=== PATIENT | female | born 1950 | race Hispanic/Latino ===

== ENCOUNTER 2020-06-14 18:11 | Inpatient (IN) | payer BC, MEDICARE, OTHER ==
[~2020-06-14] VITALS: Ht 152.4 cm; Wt 79.6 kg
[2020-06-14] MEDS ORDERED: LEVOFLOXACIN 500 MG/D5W 100 ML 100 ML IV SCH (19:00)
[2020-06-14] MEDS ORDERED: ONDANSETRON HCL 4 MG/2 ML VIAL ONE (21:28)
[2020-06-14] MEDS ORDERED: HYDROMORPHONE HCL 0.5 MG/0.5 ML ML ONE (21:29)
[2020-06-14] MEDS: PHARMACY COMMUNICATION MISC SCH (21:45)
[2020-06-15] VITALS (7 sets, daily range): BP systolic 129–152; BP diastolic 61–80
[2020-06-15] MEDS ORDERED: ZOLPIDEM TARTRATE 5 MG TAB ONE (00:55)
[2020-06-15 01:17] LABS: APPEARANCE,URINE Turbid (CLEAR); BILIRUBIN,URINE Small (NEGATIVE); COLOR,URINE Red (YELLOW); GLUCOSE, URINE (UA) Negative (NEGATIVE); KETONES,URINE Negative (NEGATIVE); LEUKOCYTE ESTERASE ,URINE Large (NEGATIVE); NITRATE,URINE Negative (NEGATIVE); OCCULT BLOOD,URINE Large (NEGATIVE); PH,URINE 5.5 (5.0-8.0); PROTEIN,URINE POS 2+ mg/dL (NEGATIVE)
[2020-06-15 01:29] LABS: BACTERIA,URINE Moderate /HPF (None Seen); RBC,URINE >100 /HPF (0-1)
[2020-06-15] MEDS ORDERED: ONDANSETRON HCL 4 MG/2 ML VIAL IVP PRN (05:00)
[2020-06-15] MEDS ORDERED: HYDROMORPHONE 1 MG/1 ML AMP IVP PRN (05:00)
[2020-06-15] MEDS: PHARMACY COMMUNICATION MISC SCH (05:45)
--- NOTE | 2020-06-15 13:00 | NUR ---
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 WAS HAVING INTERMITTENT CATHETERIZATION AT [facility] AND WAS SENT HER FOR A UROLOGY CONSULT. THINKS SHE WILLB E GOING BACK TO [facility] ON DISCHARGE, BUT NOT SURE. CM TO FOLLOW Addendum: 06/16/20 at 1819 by IVAN MENA RN CM Amended: Links added.
--- NOTE | 2020-06-15 13:43 | NUR ---
IN CELERY TIER OF [place] DUMONT AND USING CLEAN METHODS MCRAE CATH WAS REMOVED ORDERED BY PHYSICIAN. NO COMPLAINTS OR PAIN AT THE MOMENT.
[2020-06-15] MEDS ORDERED: MAG-37 PO (17:02)
[2020-06-15] MEDS ORDERED: ACET325C6 PO (17:02)
[2020-06-15] MEDS ORDERED: LUBI24CA2 PO (17:02)
[2020-06-15] MEDS ORDERED: LATA7.5D OP (17:02)
[2020-06-15] MEDS ORDERED: CLOP75TA32 PO (17:02)
[2020-06-15] MEDS ORDERED: BUME1TAB6 PO (17:02)
[2020-06-15] MEDS ORDERED: METO-391 PO (17:02)
[2020-06-15] MEDS ORDERED: POLY17PO29 PO (17:02)
[2020-06-15] MEDS ORDERED: PANT40GR PO (17:02)
[2020-06-15] MEDS ORDERED: DICL2100G TP (17:02)
[2020-06-15] MEDS ORDERED: SENN-183 PO (17:02)
[2020-06-15] MEDS ORDERED: NIFE-40 PO (17:02)
[2020-06-15] MEDS ORDERED: ICOS1CAP PO (17:02)
[2020-06-15] MEDS ORDERED: NORT10CA2 PO (17:02)
[2020-06-15] MEDS ORDERED: SPIR25TA6 PO (17:02)
[2020-06-15] MEDS ORDERED: CYCL5.5D3 OP (17:02)
[2020-06-15] MEDS ORDERED: GABA-529 PO (17:02)
[2020-06-15] MEDS ORDERED: BALS60OI4 TP (17:02)
[2020-06-15] MEDS ORDERED: BISA10SU11 RC (17:02)
[2020-06-15] MEDS ORDERED: FENT1PAT61 TD (17:02)
[2020-06-15] MEDS ORDERED: LIDO1ADH71 TP (17:02)
[2020-06-15] MEDS ORDERED: HYDR-4068 PO (17:02)
[2020-06-15] MEDS ORDERED: ATOR40TA69 PO (17:02)
[2020-06-15] MEDS ORDERED: HYDR28OI10 TP (17:02)
[2020-06-15] MEDS ORDERED: METH500T6 PO (17:02)
[2020-06-15] MEDS ORDERED: HYDR-4060 PO (17:02)
[2020-06-15] MEDS ORDERED: LACT10SO9 PO (17:02)
[2020-06-15] MEDS ORDERED: KCL10IV IV (17:02)
[2020-06-15] MEDS ORDERED: ONDA22I IM (17:02)
[2020-06-15] MEDS ORDERED: ONDANSETRON HCL 4 MG/2 ML VIAL IV PRN (19:00)
[2020-06-15] MEDS ORDERED: SIMETH PO PRN (19:00)
[2020-06-15] MEDS ORDERED: ALUMINUM HYD PO PRN (19:00)
[2020-06-15] MEDS ORDERED: MAG HYDROX PO PRN (19:00)
[2020-06-15] MEDS ORDERED: [UNRECOGNIZED DRUG - OTHER] PO PRN (19:00)
[2020-06-15] MEDS ORDERED: ACETAMINOPHEN 325 MG PO PRN (19:00)
[2020-06-15] MEDS ORDERED: LACTULOSE 20 GM/30 ML UDCUP PO PRN (19:00)
[2020-06-15] MEDS ORDERED: BALSAM PERU/CASTOR OIL 60 GM TUBE TP PRN (19:00)
[2020-06-15] MEDS ORDERED: BISACODYL 10 MG SUPP.RECT RC PRN (19:00)
[2020-06-15] MEDS ORDERED: POLYETHYLENE GLYCOL 3350 17 GM POWD.PACK PO PRN (19:00)
[2020-06-15] MEDS ORDERED: MAG HYDROX/AL HYDROX/SIMETH ES 30 ML SUSP UDCUP PO PRN (19:30)
[2020-06-15] MEDS ORDERED: PHARMACY COMMUNICATION MISC SCH (19:30)
[2020-06-15] MEDS ORDERED: SODIUM CHLORIDE 0.9% 250 ML IV ONE (20:00)
[2020-06-15] MEDS: [UNRECOGNIZED DRUG - OTHER] OP SCH (20:53)
[2020-06-15] MEDS: CYCLOSPORINE OP SCH (20:53)
[2020-06-15] MEDS: CHONDROIT SULF A OP SCH (20:53)
[2020-06-15] MEDS: LATANOPROST 2.5 ML DROPS OP SCH (20:54)
[2020-06-15] MEDS: LUBIPROSTONE 24 MCG CAP PO SCH (20:55)
[2020-06-15] MEDS ORDERED: NON-FORMULARY MEDICATION 1 EACH (Latanoprost/Pf (Latanoprost 0.005% Eye Drop) 7.5 ML) OP SCH (21:00)
[2020-06-15] MEDS ORDERED: CYCLOBENZAPRINE HCL 10 MG TABLET PO SCH (21:00)
[2020-06-15] MEDS: DICLOFENAC SODIUM TP SCH (21:00)
[2020-06-15] MEDS ORDERED: [UNRECOGNIZED DRUG - OTHER] OP SCH (21:00)
[2020-06-15] MEDS ORDERED: CHONDROIT SULF A OP SCH (21:00)
[2020-06-15] MEDS: NORTRIPTYLINE 10 MG PO SCH (21:00)
[2020-06-15] MEDS ORDERED: [UNRECOGNIZED DRUG - OTHER] TP SCH (21:00)
[2020-06-15] MEDS ORDERED: CYCLOSPORINE OP SCH (21:00)
[2020-06-15] MEDS: APPL TP SCH (21:00)
[2020-06-15] MEDS ORDERED: DICLOFENAC SODIUM TP SCH (21:00)
[2020-06-15] MEDS ORDERED: APPL TP SCH (21:00)
[2020-06-15] MEDS: LEVOFLOXACIN 500 MG/D5W 100 ML 100 ML IV SCH (21:00)
[2020-06-15] MEDS ORDERED: NORTRIPTYLINE HCL 10 MG PO SCH (21:00)
--- NOTE | 2020-06-15 21:00 | NUR ---
PT HAS URINARY RETENTION PT C/O SUPRAPUBIC DISCOMFORT. BLADDER DISTENTION FELT AND TENDER TO TOUCH. INSERTED 16F MCRAE PER DR SANCHEZ. RETRIVE 800MLS ON FIRST INSERTION. PT STATED SHE FELT BETTER AFTER
[2020-06-15] MEDS: GABAPENTIN 100 MG CAPSULE PO SCH (21:02)
[2020-06-15] MEDS: ATORVASTATIN CALCIUM 40 MG TABLET PO SCH (21:03)
[2020-06-15] MEDS ORDERED: CYCLOBENZAPRINE HCL 10 MG TABLET ONE (21:23)
[2020-06-15] MEDS: ZOLPIDEM TARTRATE 5 MG TAB PO PRN (21:25)
[2020-06-16 03:52] VITALS: BP 139/75
[2020-06-16 07:00] VITALS: BP 148/66
[2020-06-16] MEDS ORDERED: NON-FORMULARY MEDICATION 1 EACH (Pantoprazole Sodium 40 MG) PO SCH (07:30)
--- NOTE | 2020-06-16 08:00 | NUR ---
AM SHIFT ASSESSMENT.
[2020-06-16] MEDS: CYCLOSPORINE OP SCH ×3 (09:00→21:00)
[2020-06-16] MEDS ORDERED: LIDOCAINE TP SCH (09:00)
[2020-06-16] MEDS: FISH OIL 1000 MG/CAP PO SCH (09:00)
[2020-06-16] MEDS: APPL TP SCH ×3 (09:00→21:00)
[2020-06-16] MEDS ORDERED: NON-FORMULARY MEDICATION 1 EACH (Icosapent Ethyl (Vascepa) 1 GM) PO SCH (09:00)
[2020-06-16] MEDS: [UNRECOGNIZED DRUG - OTHER] OP SCH ×3 (09:00→21:00)
[2020-06-16] MEDS: DICLOFENAC SODIUM TP SCH ×3 (09:00→21:00)
[2020-06-16] MEDS: CHONDROIT SULF A OP SCH ×3 (09:00→21:00)
[2020-06-16] MEDS: NIFEDIPINE ER 30 MG TAB PO SCH (09:11)
[2020-06-16] MEDS: SPIRONOLACTONE 25 MG TAB PO SCH (09:11)
[2020-06-16] MEDS: CYCLOBENZAPRINE HCL 10 MG TABLET PO SCH ×3 (09:11→21:42)
[2020-06-16] MEDS: PANTOPRAZOLE SODIUM 40 MG TABLET.DR PO SCH (09:11)
[2020-06-16] MEDS: BUMETANIDE 1 MG TAB PO SCH (09:11)
[2020-06-16] MEDS: CLOPIDOGREL BISULFATE 75 MG TAB PO SCH (09:12)
[2020-06-16] MEDS: LUBIPROSTONE 24 MCG CAP PO SCH ×2 (09:12→21:42)
[2020-06-16] MEDS: METOPROLOL SUCCINATE 50 MG TAB.SR.24H PO SCH (09:12)
[2020-06-16] MEDS: GABAPENTIN 100 MG CAPSULE PO SCH ×2 (09:12→21:43)
[2020-06-16] MEDS: LIDOCAINE 5% TOPICAL PATCH TP SCH (09:14)
--- NOTE | 2020-06-16 11:35 | NUR ---
SPOKE TO PATIENT AT BEDSIDE- CONFIRMED DCP. PT STATES DR. PAZ SAID NO [facility]H ON DISCHARGE. Addendum: 06/16/20 at 1821 by IVAN MENA RN CM Amended: Links added.
[2020-06-16 11:52] VITALS: BP 135/83
[2020-06-16] MEDS: PHARMACY COMMUNICATION MISC SCH ×2 (13:15→19:15)
--- NOTE | 2020-06-16 13:20 | NUR ---
TO RAD. DEPT. NOW FOR MRI OF SPINAL CANAL AND LUMBER. NO CONSENT OR LABS NEEDED
--- NOTE | 2020-06-16 14:20 | NUR ---
BACK FROM RAD. DEPT.NO C/O.
--- NOTE | 2020-06-16 15:18 | NUR ---
CALL TO DR. PAZ CLARIFICATION ON H&P SAID UROLOGY CONSULT, SAID NO IT IS A NEURO PROBLEM SINCE PATIENT HAS HAD RETENTION AND HAD RECENT SURGERY.
[2020-06-16 16:49] VITALS: BP 136/78
[2020-06-16] MEDS: ACETAMINOPHEN 325 MG TAB PO PRN (19:48)
[2020-06-16 19:51] VITALS: BP 129/60
[2020-06-16] MEDS: NORTRIPTYLINE 10 MG PO SCH (21:00)
[2020-06-16] MEDS: LEVOFLOXACIN 500 MG/D5W 100 ML 100 ML IV SCH (21:42)
[2020-06-16] MEDS: ATORVASTATIN CALCIUM 40 MG TABLET PO SCH (21:42)
[2020-06-16] MEDS: LATANOPROST 2.5 ML DROPS OP SCH (21:54)
[2020-06-16] MEDS: ZOLPIDEM TARTRATE 5 MG TAB PO PRN (21:59)
[2020-06-16 23:42] VITALS: BP 119/60
[2020-06-17] MEDS: PHARMACY COMMUNICATION MISC SCH ×4 (01:15→19:15)
[2020-06-17 03:50] VITALS: BP 128/70
[2020-06-17 06:04] LABS: BASOPHILS % (AUTO) 0.7 % (0.0-5.0); EOSINOPHILS % (AUTO) 1.6 % (0.0-8.0); HEMATOCRIT 35.3 % (36-48); LYMPHOCYTES % (AUTO) 21.6 % (21.0-51.0); MEAN CORPUSCULAR HEMOGLOBIN 29.7 pg (27.0-33.0); MEAN CORPUSCULAR HGB CONC 32.6 g/dL (32.0-36.0); MEAN CORPUSCULAR VOLUME 91.2 fL (79-99); MONOCYTES % (AUTO) 8.4 % (3.0-13.0); NEUTROPHILS % (AUTO) 67.4 % (40.0-77.0); PLATELET COUNT (AUTO) 356 K/uL (130-400); RED BLOOD CELL COUNT(AUTO) 3.87 MIL/uL (4.00-5.50); RED CELL DISTRIBUTION WIDTH 12.4 % (11.0-15.5); WHITE BLOOD COUNT (AUTO) 10.4 K/uL (4.8-10.8)
[2020-06-17 06:08] LABS: POTASSIUM 3.1 mmol/L (3.5-5.1)
[2020-06-17] MEDS ORDERED: POTA10CA44 PO (06:20)
[2020-06-17] MEDS ORDERED: POTASSIUM CHLORIDE 10% ELIXIR 20 MEQ/15 ML UDCUP PO PRN ×2 (07:30→08:45)
[2020-06-17] MEDS ORDERED: OXYCODONE HCL 10 MG TAB.SR.12H PO PRN (07:30)
[2020-06-17] MEDS ORDERED: POTASSIUM CHLORIDE 20MEQ/100ML 100 ML IV PRN ×2 (07:30→08:45)
[2020-06-17] MEDS ORDERED: LIDOCAINE HCL-MPF 1% 2ML VIAL IV PRN ×2 (07:30→08:45)
[2020-06-17] MEDS: FISH OIL 1000 MG/CAP PO SCH (08:30)
[2020-06-17] MEDS ORDERED: POTASSIUM CHLORIDE 20 MEQ ERTAB PO PRN (08:45)
[2020-06-17] MEDS ORDERED: POTASSIUM CHLORIDE 10 MEQ MISC SCH (09:00)
[2020-06-17] MEDS: APPL TP SCH ×3 (09:00→21:00)
[2020-06-17] MEDS: DICLOFENAC SODIUM TP SCH ×3 (09:00→21:00)
[2020-06-17] MEDS: CYCLOSPORINE OP SCH ×3 (09:00→20:46)
[2020-06-17] MEDS: CHONDROIT SULF A OP SCH ×3 (09:00→20:46)
[2020-06-17] MEDS: [UNRECOGNIZED DRUG - OTHER] OP SCH ×3 (09:00→20:46)
[2020-06-17 09:03] VITALS: BP 140/90
[2020-06-17] MEDS: METOPROLOL SUCCINATE 50 MG TAB.SR.24H PO SCH (09:52)
[2020-06-17] MEDS: SPIRONOLACTONE 25 MG TAB PO SCH (09:52)
[2020-06-17] MEDS: BUMETANIDE 1 MG TAB PO SCH (09:52)
[2020-06-17] MEDS: LUBIPROSTONE 24 MCG CAP PO SCH ×2 (09:52→20:25)
[2020-06-17] MEDS: GABAPENTIN 100 MG CAPSULE PO SCH ×2 (09:52→20:25)
[2020-06-17] MEDS: CYCLOBENZAPRINE HCL 10 MG TABLET PO SCH ×3 (09:52→20:25)
[2020-06-17] MEDS: PANTOPRAZOLE SODIUM 40 MG TABLET.DR PO SCH (09:53)
[2020-06-17] MEDS: POTASSIUM CHLORIDE 10 MEQ/TAB.SA PO SCH (09:53)
[2020-06-17] MEDS: NIFEDIPINE ER 30 MG TAB PO SCH (09:53)
[2020-06-17] MEDS: CLOPIDOGREL BISULFATE 75 MG TAB PO SCH (09:53)
[2020-06-17] MEDS: LIDOCAINE 5% TOPICAL PATCH TP SCH (09:54)
[2020-06-17 12:09] VITALS: BP 136/70
--- NOTE | 2020-06-17 14:30 | NUR ---
AFTER SOME BLADDER TRAINING DONE, MCRAE CATH REMOVED FOR ORDER OF DR. PAZ.
[2020-06-17 16:30] VITALS: BP 134/81
--- NOTE | 2020-06-17 16:30 | NUR ---
PAGED DR. BARBOUR AND HE RETURNED CALL, ORDERED CERVICAL MRI WITH CONTRAST AND HE WILL SEE PT. TOMORROW.
--- NOTE | 2020-06-17 16:31 | NUR ---
PT. WITH URGE TO VOID BUT SO FAR HAS NOT BEEN ABLE TO.
--- NOTE | 2020-06-17 17:35 | NUR ---
CONSULT WITH DR. LOUIS: RETURNED CALL, STATES TO LEAVE MCRAE CATH IN PLACE AND HE WILL SEE PT. AN OUT PT.
--- NOTE | 2020-06-17 18:50 | NUR ---
UNABLE TO VOID, PLACED 16FR MCRAE CATH USING STERILE TECHNIQUE, 1000 ML OF CLEAR PALE URINE DRAINED.
[2020-06-17 19:00] VITALS: BP 145/75
[2020-06-17] MEDS: ATORVASTATIN CALCIUM 40 MG TABLET PO SCH (20:25)
[2020-06-17] MEDS: LEVOFLOXACIN 500 MG/D5W 100 ML 100 ML IV SCH (20:26)
[2020-06-17] MEDS: POTASSIUM CHLORIDE 20 MEQ ERTAB PO PRN ×2 (20:26→22:13)
[2020-06-17] MEDS: NORTRIPTYLINE 10 MG PO SCH (20:26)
[2020-06-17] MEDS: LATANOPROST 2.5 ML DROPS OP SCH (20:46)
[2020-06-17] MEDS: ZOLPIDEM TARTRATE 5 MG TAB PO PRN (22:12)
[2020-06-17 23:45] VITALS: BP 104/59
[2020-06-18] MEDS: PHARMACY COMMUNICATION MISC SCH ×4 (01:03→19:15)
[2020-06-18 04:00] VITALS: BP 123/62
[2020-06-18 06:22] LABS: CREATININE 0.9 mg/dL (0.5-1.5); POTASSIUM 3.8 mmol/L (3.5-5.1)
[2020-06-18 07:20] VITALS: BP 132/66
[2020-06-18] MEDS: [UNRECOGNIZED DRUG - OTHER] OP SCH ×3 (09:00→21:00)
[2020-06-18] MEDS: CHONDROIT SULF A OP SCH ×3 (09:00→21:00)
[2020-06-18] MEDS: CYCLOSPORINE OP SCH ×3 (09:00→21:00)
[2020-06-18] MEDS: DICLOFENAC SODIUM TP SCH ×3 (09:00→21:00)
[2020-06-18] MEDS: APPL TP SCH ×3 (09:00→21:00)
[2020-06-18] MEDS: FISH OIL 1000 MG/CAP PO SCH (09:00)
[2020-06-18] MEDS: GABAPENTIN 100 MG CAPSULE PO SCH ×2 (09:29→21:54)
[2020-06-18] MEDS: PANTOPRAZOLE SODIUM 40 MG TABLET.DR PO SCH (09:29)
[2020-06-18] MEDS: POTASSIUM CHLORIDE 10 MEQ/TAB.SA PO SCH (09:30)
[2020-06-18] MEDS: CLOPIDOGREL BISULFATE 75 MG TAB PO SCH (09:30)
[2020-06-18] MEDS: SPIRONOLACTONE 25 MG TAB PO SCH (09:30)
[2020-06-18] MEDS: NIFEDIPINE ER 30 MG TAB PO SCH (09:30)
[2020-06-18] MEDS: LUBIPROSTONE 24 MCG CAP PO SCH ×2 (09:31→21:53)
[2020-06-18] MEDS: LIDOCAINE 5% TOPICAL PATCH TP SCH (09:31)
[2020-06-18] MEDS: METOPROLOL SUCCINATE 50 MG TAB.SR.24H PO SCH (09:31)
[2020-06-18] MEDS: BUMETANIDE 1 MG TAB PO SCH (09:31)
[2020-06-18] MEDS: CYCLOBENZAPRINE HCL 10 MG TABLET PO SCH ×3 (09:34→21:53)
[2020-06-18] MEDS ORDERED: TAMSULOSIN HCL 0.4 MG CAP.ER.24H ONE (09:38)
[2020-06-18 10:40] VITALS: BP 131/69
[2020-06-18] MEDS ORDERED: GADODIAMIDE 10 MMOL/20 ML VIAL IV ONE (10:45)
--- NOTE | 2020-06-18 11:05 | NUR ---
TO RAD. DEPT. NOW FOR SPINAL MRI WITH CONTRAST.
--- NOTE | 2020-06-18 14:23 | NUR ---
DC update: In to speak w pt regarding MD order for @ DC. Pt mentions that prior to admission she was at [facility] for therapy following a cervical surgery. Per pt she would like to be referred back to complete her rehabilitation. Informed pt that insurance would have to re authorize admission. Pt verbalizes understanding. Order obtained from MD for [facility] referral. PT able to sign PC/LUIS FERNANDO consent. Clinical/orders faxed to [facility]. Spoke shai Ziegler from [facility] she is familiar w pt from prior admission. States will inform Karlie. Addendum: 06/18/20 at 1601 by LEANN BYNUM CM Karlie states will relay information to Lulu.
--- NOTE | 2020-06-18 14:33 | NUR ---
DR. ALLEN CALLED ASKING FOR REPORT ON MRI WITH CONTRAST, HAS NOT BEEN READ. STATES HE WILL COME SEE PT. AND LOOK AT IMAGES.
--- NOTE | 2020-06-18 15:00 | NUR ---
DR. BARBOUR IN TO SEE PT.PT. REASSURED HER BLADDER PROBLEM NOT AT ALL RELATED TO CERVICALE DISKECTOMY SURGERY AND PT. SEEMS SATISFIED.
[2020-06-18 16:00] VITALS: BP 115/63
--- NOTE | 2020-06-18 16:01 | NUR ---
AURELIA Received call from [facility]. Confirms receipt of referral. States will complete eval and submit to insurance tomorrow. CM to continue to follow.
[2020-06-18] MEDS ORDERED: FUROSEMIDE 10 MG/ML 4ML VIAL IV SCH (19:30)
[2020-06-18 20:00] VITALS: BP 134/67
[2020-06-18] MEDS ORDERED: TAMSULOSIN HCL 0.4 MG CAP.ER.24H PO SCH (21:00)
[2020-06-18] MEDS: NORTRIPTYLINE 10 MG PO SCH (21:00)
[2020-06-18] MEDS: ATORVASTATIN CALCIUM 40 MG TABLET PO SCH (21:53)
[2020-06-18] MEDS: LEVOFLOXACIN 500 MG/D5W 100 ML 100 ML IV SCH (21:54)
[2020-06-18] MEDS: LATANOPROST 2.5 ML DROPS OP SCH (22:09)
[2020-06-19 00:04] VITALS: BP 98/55
[2020-06-19] MEDS: PHARMACY COMMUNICATION MISC SCH ×2 (00:39→06:31)
[2020-06-19 04:04] VITALS: BP 115/63
[2020-06-19] MEDS: ACETAMINOPHEN 325 MG TAB PO PRN (04:27)
[2020-06-19] MEDS: [UNRECOGNIZED DRUG - OTHER] OP SCH ×2 (07:20→07:22)
[2020-06-19] MEDS: CHONDROIT SULF A OP SCH ×2 (07:20→07:22)
[2020-06-19] MEDS: CYCLOSPORINE OP SCH ×2 (07:20→07:22)
[2020-06-19] MEDS: DICLOFENAC SODIUM TP SCH ×2 (07:21→07:22)
[2020-06-19] MEDS: APPL TP SCH ×2 (07:21→07:22)
[2020-06-19 07:52] VITALS: BP 121/60
[2020-06-19] MEDS: LUBIPROSTONE 24 MCG CAP PO SCH (08:48)
[2020-06-19] MEDS: LIDOCAINE 5% TOPICAL PATCH TP SCH (08:48)
[2020-06-19] MEDS: METOPROLOL SUCCINATE 50 MG TAB.SR.24H PO SCH (08:48)
[2020-06-19] MEDS: FISH OIL 1000 MG/CAP PO SCH (08:48)
[2020-06-19] MEDS: PANTOPRAZOLE SODIUM 40 MG TABLET.DR PO SCH (08:48)
[2020-06-19] MEDS: CYCLOBENZAPRINE HCL 10 MG TABLET PO SCH (08:48)
[2020-06-19] MEDS: GABAPENTIN 100 MG CAPSULE PO SCH (08:49)
[2020-06-19] MEDS: POTASSIUM CHLORIDE 10 MEQ/TAB.SA PO SCH (08:49)
[2020-06-19] MEDS: CLOPIDOGREL BISULFATE 75 MG TAB PO SCH (08:50)
[2020-06-19] MEDS: NIFEDIPINE ER 30 MG TAB PO SCH (08:50)
[2020-06-19] MEDS: SPIRONOLACTONE 25 MG TAB PO SCH (08:51)
--- NOTE | 2020-06-19 10:25 | NUR ---
CM NOTE/STRH PER VASYL AT [facility], PATIENT APPROVED UNDER INSURANCE WAIVER AND NO NEED FOR AUTHORIZATION. PER VASYL, WILL NEED UPDATED CLINICAL PACKET AND COVID FORM, FORMS LEFT FLAGGED IN CHART FOR VASYL. PRIMARY NURSE, KATRIN LITTLE, AWARE OF APPROVAL AND NEED TO CALL PRIMARY MD FOR DC ORDERS.
--- NOTE | 2020-06-19 10:34 | NUR ---
DR PAZ WAS CALL AND NOTIFY THAT PT IS BEEN ADMITTED TO [facility]. DR. PAZ VERBALIZED THAT PT CAN BE D/C, REGARDING THE MCRAE CATH DR. PAZ MENTION TO BLADDER TRAIN HER AND THEN REMOVED. IF BLADDER TRAINING DO NOT SUCCEED PT WILL GO WITH MCRAE.
--- NOTE | 2020-06-19 11:55 | NUR ---
CM NOTE/DC PLAN CHANGED TO HOME PER PATIENT, DECLINES GOING TO [facility]. PLAN HAS CHANGED TO DC HOME WITH [facility] AND F/U WITH DR. SKINNER AND DR. PAZ FOR TREATMENT AT HOME. PRIMARY NURSE, KATRIN LITTLE, AWARE TO CALL TO SET UP APPOINTMENT WITH DR. SKINNER AND DR. PAZ.
[2020-06-19 12:00] VITALS: BP 105/68
--- NOTE | 2020-06-19 14:06 | NUR ---
DR PAZ WAS CALL TO NOTIFY THAT PT HAS DECIDED TO GO HOME WITH THE [facility] INTEAD AND FOLLOW UP WITH UROLOGY OUTPATIENT. DR BURNS ORDER TO D/C PT HOME.
== END 2020-06-19 17:00 | disposition home or self-care (01) | DRG 699 ==
LOC: EDH 18:11 → EDHIP 18:12 → 4CH 06-15 01:31
PROVIDERS: ADMIT Internal Medicine; ATTEND Internal Medicine
DX: T83.098A Other mechanical complication of other urinary catheter, initial encounter (principal); Q24.5 Malformation of coronary vessels; G82.20 Paraplegia, unspecified; N39.0 Urinary tract infection, site not specified; R33.9 Retention of urine, unspecified; R31.0 Gross hematuria; M19.90 Unspecified osteoarthritis, unspecified site; M47.816 Spondylosis without myelopathy or radiculopathy, lumbar region; I25.10 Atherosclerotic heart disease of native coronary artery without angina pectoris; E11.9 Type 2 diabetes mellitus without complications; R59.0 Localized enlarged lymph nodes; I10 Essential (primary) hypertension; R33.8 Other retention of urine; Z86.73 Personal history of transient ischemic attack (TIA), and cerebral infarction without residual deficits; Y73.8 Miscellaneous gastroenterology and urology devices associated with adverse incidents, not elsewhere classified; Y92.89 Other specified places as the place of occurrence of the external cause
CPT/HCPCS: 36415; 72148; 72156; 74176; 80048; 81001; 85025; 87088; 97039; A9579; G0378; J1170; J1940; J1956; J2405; J7050